=== PATIENT | male | born 1965 | race Caucasian/White ===

== ENCOUNTER 2016-12-03 13:00 | Emergency (ER) | payer SELFPAY ==
[~2016-12-03] VITALS: Ht 190.5 cm; Wt 86.0 kg
[~2016-12-03 13:00] MED LIST: MOBI15TA PO
[2016-12-03 13:02] VITALS: BP 166/104; PULSE 95; RESP 12; TEMP 98.2; O2SAT 96
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
== END 2016-12-03 13:36 | disposition left against medical advice (07) ==
LOC: NEPB 13:00
DX: M25.521 Pain in right elbow (principal); R03.0 Elevated blood-pressure reading, without diagnosis of hypertension; F17.210 Nicotine dependence, cigarettes, uncomplicated; F10.10 Alcohol abuse, uncomplicated
CPT/HCPCS: 99281

== ENCOUNTER 2017-06-07 03:09 | Emergency (ER) | payer SELFPAY ==
[~2017-06-07] VITALS: Ht 188 cm; Wt 86.0 kg
[2017-06-07 03:22] VITALS: BP 160/100; PULSE 93; RESP 16; TEMP 98; O2SAT 97
[2017-06-07] MEDS ORDERED: SODIUM CHLORIDE 0.9% FLUSH 10 ML FLUSH IVF PRN (03:30)
--- NOTE | 2017-06-07 03:51 | RADRPT ---
EXAM DATE/TIME: 06/07/2017 03:19 [facility] COMPARISON: CHEST SINGLE AP, November 11, 2014, 12:02. INDICATIONS : Chest pain x 2 days MEDICAL HISTORY : Seizures SURGICAL HISTORY : None. ENCOUNTER: Initial ACUITY: 2 days PAIN SCORE: 8/10 LOCATION: Bilateral chest FINDINGS: A single view of the chest demonstrates the lungs to be symmetrically aerated without evidence of mas s, infiltrate or effusion. The cardiomediastinal contours are unremarkable. Osseous structures are intact. CONCLUSION: No acute disease. Dale Carter MD on June 07, 2017 at 3:49 Board Certified Radiologist. This report was verified electronically.
[2017-06-07 03:58] LABS: AUTOMATED NEUTROPHIL # 2.1 TH/MM3 (1.8-7.7); BASOPHIL # 0.1 TH/MM3 (0-0.2); EOSINOPHIL # 0.1 TH/MM3 (0-0.4); EOSINOPHIL % 2.1 % (0.0-4.0); HEMATOCRIT 47.5 % (39.0-51.0); HEMO FLAGS DIFF FINAL; LYMPH % 54.3 % (9.0-44.0); LYMPHOCYTE # 3.5 TH/MM3 (1.0-4.8); MEAN CELL VOLUME 93.8 FL (80.0-100.0); MEAN CORPUSCULAR HEMOGLOBIN 30.7 PG (27.0-34.0); MEAN CORPUSCULAR HGB CONC 32.7 % (32.0-36.0); MONO % 9.6 % (0.0-8.0); PLATELET COUNT 220 TH/MM3 (150-450); RED BLOOD COUNT 5.06 MIL/MM3 (4.50-5.90); RED CELL DISTRIBUTION WIDTH 13.4 % (11.6-17.2); WHITE BLOOD COUNT 6.5 TH/MM3 (4.0-11.0)
[2017-06-07 04:18] LABS: ANION GAP 11 MEQ/L (5-15); AST (GOT) 205 U/L (15-37); BICARBONATE 28.2 MEQ/L (21.0-32.0); BLOOD UREA NITROGEN 5 MG/DL (7-18); CHLORIDE 101 MEQ/L (98-107); GLOMERULAR FILTRATION RATE 86 ML/MIN (>89); POTASSIUM 3.4 MEQ/L (3.5-5.1); SODIUM (NA) 140 MEQ/L (136-145)
[2017-06-07 04:23] LABS: ALKALINE PHOSPHATASE 73 U/L (45-117); ALT (GPT) 178 U/L (12-78); TOTAL BILIRUBIN ADULT 0.5 MG/DL (0.2-1.0)
--- NOTE | 2017-06-07 04:46 | PD ---
HPI Chief Complaint: Chest Pain Time Seen by Provider: 03:22 Travel History International Travel<30 days: No Contact w/Intl Traveler<30days: No Traveled to known affect area: No History of Present Illness HPI This is a 51-year-old male who presents to the emergency department intoxicated. He is also reporting that he's been having palpitations all day and he feels like his heart is beating in his chest, constant, severe. He also reports that he had a dog bite which was repaired at an outside hospital and he is having trouble affording wound care supplies because he has no money. He denies any fevers or chills. PFSH Past Medical History Cancer: No Cardiovascular Problems: No Diminished Hearing: No Endocrine: No Genitourinary: No Immune Disorder: No Musculoskeletal: No Neurologic: No Psychiatric: No Reproductive: No Respiratory: No Seizures: Yes (BEING EVALUATED FOR) Past Surgical History Surgical History: No Previous Surgery Other Surgery: No Social History Alcohol Use: Yes (4 BEERS DAILY, LAST; 1 BEER 06/08/15) Tobacco Use: Yes (1 PPD) Substance Use: No Allergies-Medications (Allergen,Severity, Reaction): Coded Allergies: No Known Allergies (Verified , 06/07/17) Reported Meds & Prescriptions Reported Meds & Active Scripts Active No Active Prescriptions or Reported Medications Review of Systems Except as stated in HPI: all other systems reviewed are Neg Physical Exam Narrative GENERAL:Well appearing, no acute distress SKIN: Sutures in place in the left forearm in the area of a prior dog bite with some exposed areas with granulation tissue, no surrounding erythema or warmth. No purulent drainage. HEAD: Atraumatic. Normocephalic. EYES: Pupils equal and round. No injection or drainage. ENT: Moist mucous membranes NECK: Trachea midline. CARDIOVASCULAR: Regular rate and rhythm. No murmur appreciated. RESPIRATORY: Clear to auscultation. Breath sounds equal bilaterally. GASTROINTESTINAL: Abdomen soft, non-tender, nondistended. MUSCULOSKELETAL: No obvious deformities. NEUROLOGICAL: Awake and alert. No obvious cranial nerve deficits. Moving all extremities. PSYCHIATRIC: Appropriate mood and affect; insight and judgment normal. Data Data Last Documented VS Vital Signs Date Time Temp Pulse Resp B/P Pulse Ox O2 Delivery O2 Flow Rate FiO2 06/07/17 03:22 98.0 93 16 160/100 97 Orders Electrocardiogram (06/07/17 03:22) Complete Blood Count With Diff (06/07/17 03:22) Comprehensive Metabolic Panel (06/07/17 03:22) Troponin I (06/07/17 03:22) Chest, Single Ap (06/07/17 03:22) Ecg Monitoring (06/07/17 03:22) Bilateral Bp Monitoring (06/07/17 03:22) Iv Access Insert/Monitor (06/07/17:) Oximetry (06/07/17:) Oxygen Administration (06/07/17 03:22) Sodium Chloride 0.9% Flush (Ns Flush) (06/07/17 03:30) Alcohol (Ethanol) (06/07/17 03:22) Labs Laboratory Tests Test 06/07/17 03:40 White Blood Count 6.5 TH/MM3 Red Blood Count 5.06 MIL/MM3 Hemoglobin 15.5 GM/DL Hematocrit 47.5 % Mean Corpuscular Volume 93.8 FL Mean Corpuscular Hemoglobin 30.7 PG Mean Corpuscular Hemoglobin 32.7 % Concent Red Cell Distribution Width 13.4 % Platelet Count 220 TH/MM3 Mean Platelet Volume 8.7 FL Neutrophils (%) (Auto) 33.0 % Lymphocytes (%) (Auto) 54.3 % Monocytes (%) (Auto) 9.6 % Eosinophils (%) (Auto) 2.1 % Basophils (%) (Auto) 1.0 % Neutrophils # (Auto) 2.1 TH/MM3 Lymphocytes # (Auto) 3.5 TH/MM3 Monocytes # (Auto) 0.6 TH/MM3 Eosinophils # (Auto) 0.1 TH/MM3 Basophils # (Auto) 0.1 TH/MM3 CBC Comment DIFF FINAL Differential Comment Sodium Level 140 MEQ/L Potassium Level 3.4 MEQ/L Chloride Level 101 MEQ/L Carbon Dioxide Level 28.2 MEQ/L Anion Gap 11 MEQ/L Blood Urea Nitrogen 5 MG/DL Creatinine 0.93 MG/DL Estimat Glomerular Filtration 86 ML/MIN Rate Random Glucose 89 MG/DL Calcium Level 9.2 MG/DL Total Bilirubin 0.5 MG/DL Aspartate Amino Transf 205 U/L (AST/SGOT) Alanine Aminotransferase 178 U/L (ALT/SGPT) Alkaline Phosphatase 73 U/L Troponin I LESS THAN 0.02 NG/ML Total Protein 8.9 GM/DL Albumin 4.5 GM/DL Ethyl Alcohol Level 361 MG/DL [facility] Medical Decision Making Medical Screen Exam Complete: Yes Emergency Medical Condition: Yes Interpretation(s) Afebrile, mild tachycardia, hypertensive No leukocytosis Mild hypokalemia Transaminitis Troponin is normal Alcohol was 361 Vital Signs Date Time Temp Pulse Resp B/P Pulse Ox O2 Delivery O2 Flow Rate FiO2 06/07/17 03:22 98.0 93 16 160/100 97 Differential Diagnosis Acute coronary syndrome, alcohol intoxication, arrhythmia Narrative Course This is a 51-year-old male who presents to the emergency department reporting palpitations feeling like his heart is beating out of his chest. He is clinically intoxicated. Labs are obtained which were reassuring including a normal troponin. EKG is nonischemic. Patient's alcohol level is above 300. I suspect his presentation is related chiefly alcohol intoxication. I don't think any additional diagnostics are required. Patient will be observed until clinically sober. Diagnosis Primary Impression: Alcohol intoxication Qualified Code: F10.920 - Alcohol intoxication, uncomplicated Patient Instructions: General Instructions Additional Instructions: Follow up with Vasu Cohen in regards to psychiatric or substance related issues at: [address] [place], [place] [id number] Med/Other Pt SpecificInfo: No Change to Meds Scripts No Active Prescriptions or Reported Meds Disposition: 01 DISCHARGE HOME Condition: Stable Kyra Hawley MD Jun 07, 2017 04:46
[2017-06-07 12:03] VITALS: BP 136/88
--- NOTE | 2017-06-08 10:53 | EKG ---
Date Performed: 06/07/2017 Time Performed: 03:16:45 PTAGE: 51 years EKG: Sinus rhythm WITH OCCASIONAL VENTRICULAR PREMATURE COMPLEXES POSSIBLE LEFT VENTRICULAR HYPERTROPHY ABNORMAL ECG NO PREVIOUS TRACING DOCTOR: Frankie Francis Interpretating Date/Time 06/08/2017 10:51:42
== END 2017-06-07 12:10 | disposition home or self-care (01) ==
LOC: NEPC 03:09
DX: F10.929 Alcohol use, unspecified with intoxication, unspecified (principal); R94.31 Abnormal electrocardiogram [ECG] [EKG]; Y90.8 Blood alcohol level of 240 mg/100 ml or more
CPT/HCPCS: 71010; 80053; 80307; 84484; 85025; 93005